=== PATIENT | male | born 1980 | race Caucasian/White ===

== ENCOUNTER 2022-11-04 07:49 | Outpatient (CLI) | payer OTHER, SELFPAY | END 2022-11-04 07:50 | disposition home or self-care (01) | LOC: AMB 11-05 01:24 | PROVIDERS: Visit Provider Family Medicine | DX: S69.91XA Unspecified injury of right wrist, hand and finger(s), initial encounter (principal); W00.2XXA Other fall from one level to another due to ice and snow, initial encounter; Y92.480 Sidewalk as the place of occurrence of the external cause | CPT/HCPCS: A0425; A0427 ==

== ENCOUNTER 2022-11-04 08:09 | Emergency (ER) | payer OTHER, SELFPAY ==
--- NOTE | 2022-11-04 08:12 | CRLHL7_ITS ---
For Patients: As a result of the Cures Act, medical imaging exams and procedure reports are released immediately into your electronic medical record. You may view this report before your referring provider. If you have questions, please contact your health care provider. Indication: Fall on outstretched hand Comparison: None available. Technique: AP, lateral, and oblique views right hand were obtained. Findings: There is an impacted fracture of the distal radius with apex dorsal angulation. There is likely additional ulnar styloid avulsion fracture. The joint spaces are grossly preserved. There is moderate carpal soft tissue swelling. Impression: Impacted fracture of the distal radius with apex dorsal angulation consistent with Colles fracture. Mild to moderate carpal soft tissue swelling. Dictated by Dimas Villavicencio MD @ 11/04/2022 9:13:38 AM (Electronically Signed)
[2022-11-04 08:14] VITALS: BP 141/97; PULSE 101; RESP 18; TEMP 36.5; O2SAT 95; BMI 33.5
--- NOTE | 2022-11-04 09:29 | ED.GENADULT ---
HPI - General Adult General Chief complaint: Extremity Pain/Injury, Upper Stated complaint: Fell Time Seen by Provider: 11/04/22 09:22 History of Present Illness HPI narrative: Patient is a 42-year-old who fell on the ice injured the right wrist. Has good amount of pain in that wrist. No other specific complaints. No elbow pain, no shoulder pain no neck pain, no back pain. Patient is ambulatory. Patient noted swelling in the right wrist Medications at home her spironolactone methotrexate and estradiol Related Data Home Medications Medication Instructions Recorded Confirmed estradiol 0.1 mg/24 hr semiweekly 11/04/22 transdermal patch methotrexate sodium 2.5 mg tablet mg 11/04/22 spironolactone 50 mg tablet mg 11/04/22 Previous Rx's Medication Instructions Recorded ketorolac 10 mg tablet 10 mg PO Q8H PRN pain #10 tabs 11/04/22 Allergies Allergy/AdvReac Type Severity Reaction Status Date / Time No Known Drug Allergies Allergy Verified 11/04/22 08:12 Review of Systems Narrative: Negative for any other injuries reported, no recent illnesses PFSH PFSH Social History Smoking Status: Current every day smoker Second hand tobacco smoke exposure: No How often do you have a drink containing alcohol: monthly or less How often do you have six or more drinks on one occasion: Never AUDIT-C Alcohol total score: 1 Non-prescribed substance use: denies use Exam Narrative: Exam Narrative: Patient denies any neck pain, vital signs unremarkable other than elevated blood pressure Right upper extremity shows no tenderness in the shoulder or elbow forearm shows distal swelling over the radius and ulnar styloid area no open wounds noted distal CMS intact X-ray: By my read the x-ray shows a dorsally displaced Colles fracture of, comminuted distal fragment of the radius and intra-articular Const: Vital Signs, click to edit/add: Vital Signs - 24 hr 11/04/22 08:14 11/04/22 09:32 Temperature 97.7 F Pulse Rate [Right Pulse Oximeter] 101 H 93 Respiratory Rate 18 Blood Pressure [Ri ght Upper Arm] 141/97 H Pulse Oximetry 95 96 Oxygen Delivery Me thod Room Air Room Air Course Vital Signs Vital signs: Initial Vital Signs Temperature 97.7 F 11/04/22 08:14 Temperature Source Temporal Artery Scan 11/04/22 08:14 Pulse Rate 101 H 11/04/22 08:14 Respiratory Rate 18 11/04/22 08:14 Blood Pressure 141/97 H 11/04/22 08:14 Blood Pressure Mean 111 11/04/22 08:14 Blood Pressure Position Sitting 11/04/22 08:14 Pulse Oximetry 95 11/04/22 08:14 Oxygen Delivery Method 11/04/22 08:14 Vital Signs Temperature 97.7 F 11/04/22 08:14 Pulse Rate 101 H 11/04/22 08:14 Respiratory Rate 18 11/04/22 08:14 Blood Pressure 141/97 H 11/04/22 08:14 Pulse Oximetry 95 11/04/22 08:14 Oxygen Delivery Method 11/04/22 08:14 Temperature 97.7 F 11/04/22 08:14 Pulse Rate 93 11/04/22 09:32 Respiratory Rate 18 11/04/22 08:14 Blood Pressure 141/97 H 11/04/22 08:14 Pulse Oximetry 96 11/04/22 09:32 Oxygen Delivery Method 11/04/22 09:32 Medical Decision Making MDM Narrative Medical decision making narrative: Patient has a Colles fracture of the right wrist, by my read has a comminuted distal radial fragment, I think this would be best treated by orthopedic surgeon likely will need surgery. Will place in a thumb spica splint short-arm arm sling, Toradol given for pain relief, will give Toradol for home. Elevation, splint precautions, ortho follow-up in 3-5 days will make an appointment for the patient. Return sooner problems or concerns Discharge Plan Discharge Clinical Impression: Fracture of wrist Patient Disposition: Home w/ Parent or Adult Condition: Improved Additional Instructions: Ortho follow-up in 3-5 days, please make appointment, arm sling, splint precautions if too tight he can return to the ED and we can adjust. Toradol as needed, Tylenol as needed, light use of the upper extremity. Ortho follow-up as above. Activity Level: Light activity Discharge Diet: Regular Prescriptions: New ketorolac 10 mg tablet 10 mg PO Q8H PRN (Reason: pain) Qty: 10 0RF No Action estradiol 0.1 mg/24 hr patch semiweekly Label Comments: apply 3 patch ONTO THE SKIN 2 times every week. methotrexate sodium 2.5 mg tablet Label Comments: Take 6 TABLETS BY MOUTH once weekly. spironolactone 50 mg tablet Label Comments: TAKE ONE TABLET BY MOUTH ONE TIME DAILY Stand Alone Forms: [employer] Info Instructions
[2022-11-04] MEDS: KETOROLAC 10 MG TABLET PO (09:30)
[2022-11-04 09:32] VITALS: PULSE 93; O2SAT 96
== END 2022-11-04 09:58 | disposition home or self-care (01) ==
LOC: ED 09:43
PROVIDERS: Emergency Provider Family Medicine
DX: S52.531A Colles' fracture of right radius, initial encounter for closed fracture (principal); W19.XXXA Unspecified fall, initial encounter
CPT/HCPCS: 29125; 73110; 99283; 99284; A9270

== ENCOUNTER 2022-11-06 09:29 | Outpatient (CLI) | payer OTHER, SELFPAY ==
[2022-11-06 12:06] LABS: Chloride* 108 mmol/L (96-114); Potassium* 4.2 mmol/L (3.6-5.1); Sodium* 140 mmol/L (135-149)
[2022-11-06 12:08] LABS: Creatinine* 1.1 mg/dL (0.5-1.5); Estimated Glomerular Filt Rate 85 ml/min
[2022-11-06 12:09] LABS: Blood Urea Nitrogen* 17 mg/dL (5-24); Calcium* 9.5 mg/dL (8.4-10.6); Carbon Dioxide* 26 mmol/L (20-32); Glucose* 114 mg/dL (60-115)
== END 2022-11-06 09:30 | disposition home or self-care (01) ==
LOC: NFLDREF 09:30
PROVIDERS: Visit Provider Family Medicine
DX: Z01.818 Encounter for other preprocedural examination (principal)
CPT/HCPCS: 80048

== ENCOUNTER 2022-11-09 12:30 | Day surgery (SDC) | payer OTHER, SELFPAY ==
[2022-11-09] VITALS (7 sets, daily range): BP systolic 121–137; BP diastolic 79–94; PULSE 85–96; RESP 16–20; TEMP 36.8–36.9; O2SAT 92–96; BMI 32.9
[2022-11-09] MEDS: LACTATED RINGERS 1000 ML 1,000 ML 100 ML IV (12:55)
[2022-11-09] MEDS: fentaNYL 100 MCG/2 ML inj IVP (14:25)
[2022-11-09] MEDS: MIDAZOLAM HCL 1 MG/ML inj IVP (14:25)
--- NOTE | 2022-11-09 14:34 | SUR.PREOP ---
TIME?OUT:?right arm 1422 PT/RN/MDA?VERIFICATION?OF?SURGICAL?SITE,?PROCEDURE,?AND?CONSENT OBTAINED?PRIOR?TO?INVASIVE?PROCEDURE.
[2022-11-09] MEDS: CEFAZOLIN 2 GM in 0.9 % SODIUM CHLORIDE Mini-bag 100 ML IVPB (15:02)
--- NOTE | 2022-11-09 15:15 | CRLHL7_ITS ---
For Patients: As a result of the Cures Act, medical imaging exams and procedure reports are released immediately into your electronic medical record. You may view this report before your referring provider. If you have questions, please contact your health care provider. Indication: ORIF right wrist Technique: Two fluoroscopic images of the right wrist. Fluoroscopic time 14.4 seconds. IMPRESSION: Fluoroscopic guidance for open reduction internal fixation distal radial fracture. Dictated by Burak Jaimes MD @ 11/10/2022 12:25:31 PM (Electronically Signed)
--- NOTE | 2022-11-09 15:31 | P.NB_ITS ---
Nerve Block Nerve Block Time Seen by Provider: 14:30 Date Seen: 11/09/22 Type of block requested by surgeon for post-operative analgesia: axillary Side: right Time out performed: Yes Verification of patient name: Yes Verification of date of : Yes Site marking: site marked Name of person performing procedure: Juanito Continuous monitoring Was continuous monitoring of O2 sat, B/P, dealer support technician, recorded every 15 minutes?: Yes Procedure Checklist: sterile prep, needles and gloves Ultrasound guided. Images saved: Yes Medications given in 5ml increments after negative aspiration: Ropivicaine %: 0.5 mL: 30 Needle gauge: 22 Patient tolerated procedure well: Yes Additional comments: Needle noted adjacent to nerve Block Charges Block Charge (with Pro Fee): Brachial Plexus Use of Ultrasound Machine for Block: Yes- US Guidance/pain block
--- NOTE | 2022-11-09 16:05 | W.ANESCHARGE ---
Anesthesia Charges Start Date/Time Anesthesia Start Date: 11/09/22 Anesthesia Start Time: 14:56 Stop Date/Time Anesthesia Stop Date: 11/09/22 Anesthesia Stop Time: 16:34 Summary Emergency: No
--- NOTE | 2022-11-09 16:10 | P.ORPRC_ITS ---
Procedure Note Date of procedure: 11/09/22 Procedure: PREOPERATIVE DIAGNOSES: 1. Right distal radius fracture intra-articular, comminuted, dorsally angulated and displaced - unstable POSTOPERATIVE DIAGNOSES: 1. Right distal radius fracture intra-articular, comminuted, dorsally angulated and displaced - unstable NAME OF OPERATION: 1. Right distal radius open reduction with internal fixation of intraarticular fracture (3+ parts) 2. [id number] - intraoperative fluoroscopy up to 1 hour. SURGEON: Fady Friedman MD VEHICLE CONTROLS ENGINEER: Nick Henning PA-C - Of note, an assistant department manager was critical for this case to aide in patient positioning, limb manipulation, tissue retraction, closure, and splinting. ANESTHESIA: Supraclavicular block IMPLANTS: Synthes dual column volar locking fixed angle plate with 2.4 and 2.7 mm locking and nonlocking screws, respectively for diaphyseal fixation. Multiple 1.8 mm distal locking pegs. TOURNIQUET: 39 minutes at 250 torr. INDICATIONS: The patient is a pleasant, 42-year-old individual who sustained a right wrist injury after a fall. They had difficulty with use of the extremity and deformity. Workup included xrays which revealed an unstable fracture. Given these findings, surgery was recommended to stablize the fracture. FINDINGS: Closed, comminuted, displaced distal radius fracture with dorsal angulation and displacement. It was reducible through the incision. Given the comminution and intra-articular involvement, decision was made for plating.. PROCEDURE: Following a thorough discussion of risks, benefits, and alternatives, consent was obtained and the operative extremity was marked. The patient was brought to the operating room and placed supine on the operating table. Induction of anesthesia was achieved. Appropriate time out was performed identifying proper patient, site and procedure. 2 g IV Ancef was administered within 1 hour of incision preoperatively. The right upper extremity was prepped and draped in the appropriate sterile fashion using ChloraPrep prep. The limb was exsanguinated and the tourniquet inflated. A longitudinal incision was made overlying the FCR tendon. Sharp incision through skin and subcutaneous tissue allowed identification of the FCR tendon. The superficial sheath was sharply divided, the tendon retracted ulnarly, and the deep fascial sheath also released. The FPL was retracted ulnarly and the pronator quadratus was sharply released from the radial border of the radius and subperiosteally elevated. The fracture was encountered and cleared of interposed periosteum / fracture hematoma. A reduction was performed and the appropriate plate selected. Temporary stabilization allowed C-arm fluoroscopy to confirm proper fracture reduction and plate positioning. The oblong hole was filled with a nonlocking screw followed by multiple distal locking pegs being careful to keep these in subchondral bone and extraarticular. Finally, the remaining proximal shaft screws were drilled and placed. Fluoroscopic imaging confirmed the improved position and showed the fracture to be stable. At this stage, the wound was thoroughly irrigated with normal saline. Closure performed with 0 Vicryl for the pronator quadratus, followed by deflation of the tourniquet. All major bleeding points were cauterized. Closure was then completed with 3-0 Vicryl for the subcutaneous, and 4-0 statafix for subcuticular closure. Dressings were applied along with a volar/dorsal splint. The patient was awoken from anesthesia and transferred to PACU in stable condition. PLAN: 1. Elevate operative extremity. 2. Ice, acetominphen or ibuprofen PRN. 3. Percocet for pain as needed. 4. Follow up with me in 10-16 days for wound check and splint removal and transition to a short-arm cast. Total immobilization time between splint and cast should be 3 weeks. Follow-up at that 3 week grupo for removal of cast and wrist brace application and initiation of OT.
--- NOTE | 2022-11-09 16:35 | W.ANESCHARGE ---
Anesthesia Charges Start Date/Time Anesthesia Start Date: 11/09/22 Anesthesia Start Time: 14:56 Stop Date/Time Anesthesia Stop Date: 11/09/22 Anesthesia Stop Time: 16:34 Summary Emergency: No
== END 2022-11-09 17:34 | disposition home or self-care (01) ==
PROVIDERS: Visit Provider Orthopaedic Surgery Sports Medicine
PROC: (CPT 25575; principal; 2022-11-09 15:15)
DX: S52.571A Other intraarticular fracture of lower end of right radius, initial encounter for closed fracture (principal)
CPT/HCPCS: 25609; 01830; 64415; 73110; 76942; A4580; C1713; J0690; J2250; J2704; J2795; J3010; J7120

== ENCOUNTER 2023-06-04 13:21 | Outpatient (CLI) | payer OTHER, SELFPAY | END 2023-06-04 13:22 | disposition home or self-care (01) | PROVIDERS: PCP Physician Assistant Surgical; Visit Provider Family Medicine | DX: L40.9 Psoriasis, unspecified (principal) | CPT/HCPCS: 80048; 84460 ==

== ENCOUNTER 2024-03-10 13:42 | Outpatient (CLI) | payer OTHER, SELFPAY | END 2024-03-10 13:43 | disposition home or self-care (01) | PROVIDERS: PCP Physician Assistant Surgical; Visit Provider Family Medicine | DX: L40.9 Psoriasis, unspecified (principal) | CPT/HCPCS: 80048; 84460 ==